=== PATIENT | male | born 1990 | race Caucasian/White ===

== ENCOUNTER 2017-09-10 09:37 | Emergency (ER) | payer SELFPAY ==
[2017-09-10 10:55] LABS: RAPID GROUP A STREP NEGATIVE (NEGATIVE)
[2017-09-10] MEDS ORDERED: DEXAMETHASONE SOD PHOSPHATE 10MG/ML 1ML VIAL ONE (11:19)
[2017-09-10] MEDS ORDERED: IPRATROPIUM/ALBUTEROL SULFATE 3 ML SOLUTION IH ONE (11:40)
== END 2017-09-10 11:56 | disposition home or self-care (01) ==
LOC: EDH 09:37
DX: J45.909 Unspecified asthma, uncomplicated (principal); J06.9 Acute upper respiratory infection, unspecified; J02.9 Acute pharyngitis, unspecified; R09.82 Postnasal drip; Z88.0 Allergy status to penicillin; Z88.1 Allergy status to other antibiotic agents
CPT/HCPCS: 87804 ×2; 87880; 94640; 96372; 99284; J1100